=== PATIENT | male | born 1960 | race Caucasian/White ===

== ENCOUNTER 2021-03-03 15:54 | Inpatient (IN) | payer OTHER ==
[~2021-03-03] VITALS: Ht 182.8 cm; Wt 101.1 kg
--- NOTE | 2021-03-03 16:10 | ED Abdominal Pain ---
General Stated Complaint: STOMACH ACHE / [facility] Source of Information: Patient Exam Limitations: No Limitations (SAUL MENDOZA APRN) History of Present Illness Date Seen by Provider: Mar 03, 2021 Time Seen by Provider: 16:07 Initial Comments To ER with epigastric abdominal pain that started yesterday after eating some spicy food. Has tried qtis-kuk-wwmktna heartburn medications which did not help. He denies nausea or vomiting. Nothing makes it better or worse. No fevers or chills. Timing/Duration: 1-2 Days Severity/Quality: Moderate Location: Epigastric Radiation: No Radiation Activities at Onset: None (SAUL MENDOZA APRN) Allergies and Home Medications Allergies Coded Allergies: No Known Drug Allergies (Unverified , 03/03/21) Patient Home Medication List Home Medication List Reviewed: Yes (SAUL MENDOZA APRN) Review of Systems Review of Systems Constitutional: see HPI EENTM: No Symptoms Reported Respiratory: No Symptoms Reported Cardiovascular: No Symptoms Reported Gastrointestinal: See HPI, Abdominal Pain Genitourinary: No Symptoms Reported Musculoskeletal: no symptoms reported Skin: no symptoms reported Psychiatric/Neurological: No Symptoms Reported Endocrine: No Symptoms Reported (SAUL MENDOZA APRN) Physical Exam Vital Signs Vital Signs - First Documented 03/03/21 16:04 Temp 37.1 Pulse 91 Resp 20 B/P (MAP) 185/113 (137) Pulse Ox 98 O2 Delivery Room Air (RASHARD SEWELL MD) Vital Signs Capillary Refill : (SAUL MENDOZA APRN) Height/Weight/BMI Height: '" Weight: lbs. oz. kg; BMI Method: General Appearance: WD/WN, no apparent distress Respiratory: no respiratory distress, no accessory muscle use Gastrointestinal: normal bowel sounds, non tender, soft Extremities: normal range of motion, non-tender Neurologic/Psychiatric: alert, normal mood/affect, oriented x 3 Skin: normal color, warm/dry (SAUL MENDOZA APRN) Progress/Results/Core Measures Results/Orders Lab Results Laboratory Tests Test 03/03/21 16:15 03/03/21 17:55 Range/Units White Blood Count 16.2 H 4.3-11.0 10^3/uL Red Blood Count 5.62 H 4.30-5.52 10^6/uL Hemoglobin 16.9 13.3-17.7 g/dL Hematocrit 50 40-54 % Mean Corpuscular Volume 90 80-99 fL Mean Corpuscular Hemoglobin 30 25-34 pg Mean Corpuscular Hemoglobin Concent 34 32-36 g/dL Red Cell Distribution Width 12.6 10.0-14.5 % Platelet Count 285 130-400 10^3/uL Mean Platelet Volume 9.8 9.0-12.2 fL Immature Granulocyte % (Auto) 0 % Neutrophils (%) (Auto) 81 H 42-75 % Lymphocytes (%) (Auto) 11 L 12-44 % Monocytes (%) (Auto) 8 0-12 % Eosinophils (%) (Auto) 0 0-10 % Basophils (%) (Auto) 0 0-10 % Neutrophils # (Auto) 13.1 H 1.8-7.8 10^3/uL Lymphocytes # (Auto) 1.7 1.0-4.0 10^3/uL Monocytes # (Auto) 1.2 H 0.0-1.0 10^3/uL Eosinophils # (Auto) 0.1 0.0-0.3 10^3/uL Basophils # (Auto) 0.0 0.0-0.1 10^3/uL Immature Granulocyte # (Auto) 0.1 0.0-0.1 10^3/uL Neutrophils % (Manual) 82 % Lymphocytes % (Manual) 9 % Monocytes % (Manual) 9 % Blood Morphology Comment NORMAL Sodium Level 139 135-145 MMOL/L Potassium Level 4.1 3.6-5.0 MMOL/L Chloride Level 102 98-107 MMOL/L Carbon Dioxide Level 26 21-32 MMOL/L Anion Gap 11 5-14 MMOL/L Blood Urea Nitrogen 7 7-18 MG/DL Creatinine 0.96 0.60-1.30 MG/DL Estimat Glomerular Filtration Rate > 60 BUN/Creatinine Ratio 7 Glucose Level 115 H 70-105 MG/DL Calcium Level 10.1 8.5-10.1 MG/DL Corrected Calcium 8.5-10.1 MG/DL Total Bilirubin 1.2 H 0.1-1.0 MG/DL Aspartate Amino Transf (AST/SGOT) 13 5-34 U/L Alanine Aminotransferase (ALT/SGPT) 19 0-55 U/L Alkaline Phosphatase 64 40-136 U/L Total Protein 7.8 6.4-8.2 GM/DL Albumin 4.6 H 3.2-4.5 GM/DL Lipase 19 8-78 U/L Urine Color YELLOW Urine Clarity CLEAR Urine pH 6.0 5-9 Urine Specific [place] <=1.005 1.016-1.022 Urine Protein NEGATIVE NEGATIVE Urine Glucose (UA) NEGATIVE NEGATIVE Urine Ketones NEGATIVE NEGATIVE Urine Nitrite NEGATIVE NEGATIVE Urine Bilirubin NEGATIVE NEGATIVE Urine Urobilinogen 0.2 < = 1.0 MG/DL Urine Leukocyte Esterase NEGATIVE NEGATIVE Urine RBC (Auto) NEGATIVE NEGATIVE Urine RBC NONE /HPF Urine WBC NONE /HPF Urine Squamous Epithelial Cells RARE /HPF Urine Crystals NONE /LPF Urine Bacteria NEGATIVE /HPF Urine Casts NONE /LPF Urine Mucus NEGATIVE /LPF Urine Culture Indicated NO (RASHARD SEWELL MD) Medications Given in ED Current Medications Medications Dose Ordered Sig/Yuriy Route Start Time Stop Time Status Last Admin Dose Admin Al Hydrox/Mg Hydrox/Simethicone 30 ml ONCE ONCE PO 03/03/21 16:15 03/03/21 16:16 DC 03/03/21 16:23 30 ML Fentanyl Citrate 50 mcg ONCE ONCE IVP 03/03/21 17:00 03/03/21 17:01 DC 03/03/21 16:55 50 MCG Iohexol 100 ml ONCE ONCE IV 03/03/21 17:00 03/03/21 17:01 DC 03/03/21 17:46 100 ML Lidocaine HCl 15 ml ONCE ONCE PO 03/03/21 16:15 03/03/21 16:16 DC 03/03/21 16:23 15 ML Sodium Chloride 10 ml NEEDED PRN IV 03/03/21 17:00 03/03/21 20:23 DC 03/03/21 17:46 10 ML Sodium Chloride 100 ml ONCE ONCE IV 03/03/21 17:00 03/03/21 17:01 DC 03/03/21 17:46 80 ML (RASHARD SEWELL MD) Vital Signs/I&O 03/03/21 03/03/21 16:04 16:55 Temp 37.1 37.1 Pulse 91 Resp 20 B/P (MAP) 185/113 (137) Pulse Ox 98 O2 Delivery Room Air (RASHARD SEWELL MD) Departure Impression Primary Impression: Acute cholecystitis Disposition: ADMITTED INPATIENT Condition: Stable Admissions Decision to Admit Reason: Admit from ER (General) Decision to Admit/Date: Mar 03, 2021 Time/Decision to Admit Time: 18:16 (SAUL MENDOZA APRN) Departure-Patient Inst. Referrals: KIMBER QUINTANILLA MD (PCP) Primary Care Physician Attending physician note: I was physically present as attending physician in the emergency department during the care of this patient, but I was not directly involved in his care. (RASHARD SEWELL MD) SAUL MENDOZA APRN Mar 03, 2021 16:10 RASHARD SEWELL MD Mar 03, 2021 20:49
[2021-03-03] MEDS ORDERED: ANTACID SUSP 30 ML UDC (MYLANTA) PO ONE (16:15)
[2021-03-03] MEDS ORDERED: LIDOCAINE 2% VISCOUS 15 ML UDC PO ONE (16:15)
[2021-03-03 16:26] LABS: BASOPHILS % (AUTO) 0 % (0-10); EOSINOPHILS # (AUTO) 0.1 10^3/uL (0.0-0.3); EOSINOPHILS % (AUTO) 0 % (0-10); HEMATOCRIT 50 % (40-54); HEMOGLOBIN 16.9 g/dL (13.3-17.7); LYMPHOCYTES # (AUTO) 1.7 10^3/uL (1.0-4.0); LYMPHOCYTES % (AUTO) 11 % (12-44); MEAN CORPUSCULAR HEMOGLOBIN 30 pg (25-34); MEAN CORPUSCULAR HGB CONC 34 g/dL (32-36); MEAN CORPUSCULAR VOLUME 90 fL (80-99); MEAN PLATELET VOLUME 9.8 fL (9.0-12.2); MONOCYTES # (AUTO) 1.2 10^3/uL (0.0-1.0); MONOCYTES % (AUTO) 8 % (0-12); NEUTROPHILS # (AUTO) 13.1 10^3/uL (1.8-7.8); NEUTROPHILS % (AUTO) 81 % (42-75); PLATELET COUNT 285 10^3/uL (130-400); WHITE BLOOD COUNT 16.2 10^3/uL (4.3-11.0)
[2021-03-03 16:37] LABS: ALBUMIN 4.6 GM/DL (3.2-4.5)
[2021-03-03 16:38] LABS: CHLORIDE 102 MMOL/L (98-107); POTASSIUM 4.1 MMOL/L (3.6-5.0); SODIUM 139 MMOL/L (135-145)
[2021-03-03 16:39] LABS: CALCIUM 10.1 MG/DL (8.5-10.1)
[2021-03-03 16:40] LABS: GLUCOSE 115 MG/DL (70-105); TOTAL PROTEIN 7.8 GM/DL (6.4-8.2)
[2021-03-03 16:41] LABS: CARBON DIOXIDE 26 MMOL/L (21-32)
[2021-03-03 16:42] LABS: BILIRUBIN,TOTAL 1.2 MG/DL (0.1-1.0); NEUTROPHILS % (MANUAL) 82 %
[2021-03-03 16:43] LABS: ALKALINE PHOSPHATASE 64 U/L (40-136); CREATININE SERUM 0.96 MG/DL (0.60-1.30); GFR ESTIMATED > 60; LYMPHOCYTES % (MANUAL) 9 %; MONOCYTES % (MANUAL) 9 %; RBC MORPH NORMAL
[2021-03-03 16:44] LABS: BUN/CREATININE RATIO 7
[2021-03-03 16:46] LABS: ALANINE AMINOTRANSFERASE 19 U/L (0-55)
[2021-03-03 16:47] LABS: LIPASE 19 U/L (8-78)
[2021-03-03] MEDS ORDERED: HOLD METFORMIN - RECEIVED CONTRAST 20 ML VIAL IV SCH (17:00)
[2021-03-03] MEDS ORDERED: fentaNYL INJ 100 MCG/2 ML AMP IVP ONE ×2 (17:00→19:00)
[2021-03-03] MEDS ORDERED: NS 100 ML (IVPB) BAG IV ONE (17:00)
[2021-03-03] MEDS ORDERED: CATHETER FLUSH 10 ML SYR IV PRN ×2 (17:00→20:30)
[2021-03-03] MEDS ORDERED: IOHEXOL 350 MG/ML 100 ML (OMNIPAQUE 350) VIAL IV ONE (17:00)
--- NOTE | 2021-03-03 17:55 | Diagnostic Imaging Report ---
EXAMINATION: CT abdomen and pelvis with intravenous contrast. TECHNIQUE: Multiple contiguous axial images were obtained through the abdomen and pelvis after the uneventful administration of intravenous contrast. All CT scans use one or more of the following dose optimizing techniques: automated exposure control, MA and/or KvP adjustment based on patient size and exam type or iterative reconstruction. HISTORY: Epigastric pain and leukocytosis. COMPARISON: None available. FINDINGS: Limited views of the lower thorax show mild atelectasis in the bases. The liver is normal without focal lesion. There is no biliary ductal dilation. There is a stone in the gallbladder. Gallbladder is distended with mild surrounding stranding. Findings concerning for cholecystitis. Pancreas is normal. Spleen is normal. Adrenal glands are normal. Simple cysts are present in the kidneys. No suspicious renal lesions. There is no hydronephrosis. Urinary bladder is normal. Visualized bowel is normal in caliber without obstruction or inflammation. No free fluid or air. No abdominal or pelvic lymphadenopathy. Aorta is normal in caliber without aneurysm. There are no suspicious osseous lesions. IMPRESSION: 1. Cholelithiasis with distended gallbladder and surrounding stranding concerning for acute cholecystitis. Dictated by: Dictated on workstation # [id number]
[2021-03-03 18:01] LABS: BILIRUBIN,URINE NEGATIVE (NEGATIVE); CLARITY,URINE CLEAR; COLOR,URINE YELLOW; GLUCOSE, URINE (UA) NEGATIVE (NEGATIVE); KETONES,URINE NEGATIVE (NEGATIVE); LEUKOCYTE ESTERASE ,URINE NEGATIVE (NEGATIVE); NITRITE,URINE NEGATIVE (NEGATIVE); PROTEIN,URINE NEGATIVE (NEGATIVE)
[2021-03-03 18:07] LABS: BACTERIA,URINE NEGATIVE /HPF; SQUAMOUS EPITHELIAL CELL,UR RARE /HPF
[2021-03-03 19:55] VITALS: BP 151/90
[2021-03-03] MEDS ORDERED: ONDANSETRON 4 MG/2 ML (SDV) Z0FRAN IV PRN (20:30)
[2021-03-03] MEDS: LACTATED RINGERS 1,000 ML IV SCH (20:51)
[2021-03-03] MEDS: cefTRIAXone 1,000 MG/SWFI 10 ML IV PUSH IV SCH ×2 (20:52)
[2021-03-03] MEDS: metroNIDAZOLE 500MG/100ML IVPB 100 ML IV SCH (22:12)
[2021-03-03] MEDS: fentaNYL INJ 100 MCG/2 ML AMP IV PRN (22:12)
[2021-03-04] VITALS (14 sets, daily range): BP systolic 142–162; BP diastolic 76–97
[2021-03-04] MEDS: fentaNYL INJ 100 MCG/2 ML AMP IV PRN ×5 (00:51→19:55)
[2021-03-04 03:47] LABS: BASOPHILS % (AUTO) 0 % (0-10); EOSINOPHILS % (AUTO) 0 % (0-10); HEMATOCRIT 48 % (40-54); HEMOGLOBIN 15.9 g/dL (13.3-17.7); LYMPHOCYTES # (AUTO) 1.8 10^3/uL (1.0-4.0); LYMPHOCYTES % (AUTO) 12 % (12-44); MEAN CORPUSCULAR HEMOGLOBIN 30 pg (25-34); MEAN CORPUSCULAR HGB CONC 33 g/dL (32-36); MEAN CORPUSCULAR VOLUME 90 fL (80-99); MEAN PLATELET VOLUME 10.3 fL (9.0-12.2); MONOCYTES # (AUTO) 1.4 10^3/uL (0.0-1.0); MONOCYTES % (AUTO) 9 % (0-12); NEUTROPHILS # (AUTO) 11.6 10^3/uL (1.8-7.8); NEUTROPHILS % (AUTO) 78 % (42-75); PLATELET COUNT 232 10^3/uL (130-400); WHITE BLOOD COUNT 14.9 10^3/uL (4.3-11.0)
[2021-03-04 04:02] LABS: ALBUMIN 3.9 GM/DL (3.2-4.5); CHLORIDE 103 MMOL/L (98-107); SODIUM 135 MMOL/L (135-145)
[2021-03-04 04:03] LABS: CALCIUM 9.1 MG/DL (8.5-10.1)
[2021-03-04 04:04] LABS: GLUCOSE 109 MG/DL (70-105); TOTAL PROTEIN 6.7 GM/DL (6.4-8.2)
[2021-03-04 04:05] LABS: CARBON DIOXIDE 20 MMOL/L (21-32)
[2021-03-04 04:06] LABS: BILIRUBIN,TOTAL 1.3 MG/DL (0.1-1.0)
[2021-03-04 04:08] LABS: ALKALINE PHOSPHATASE 52 U/L (40-136); CREATININE SERUM 0.79 MG/DL (0.60-1.30); GFR ESTIMATED > 60
[2021-03-04 04:09] LABS: BUN/CREATININE RATIO 9
[2021-03-04 04:11] LABS: ALANINE AMINOTRANSFERASE 16 U/L (0-55)
[2021-03-04] MEDS: LACTATED RINGERS 1,000 ML IV SCH ×4 (04:56→23:30)
[2021-03-04] MEDS: metroNIDAZOLE 500MG/100ML IVPB 100 ML IV SCH ×3 (06:25→23:25)
[2021-03-04] MEDS ORDERED: ESOM20CA58 PO (12:12)
[2021-03-04] MEDS ORDERED: CALC10009 PO (12:12)
--- NOTE | 2021-03-04 12:34 | History & Physical-Surgical ---
History of Present Illness History of Present Illness Reason for visit/HPI CC: RUQ Abdominal pain 60 year old male with 3 days of ruq abdominal pain. No radiation of pain. Continuous pain. Moderate to sever. Nausea, no emesis. Nothing seemed to bring on. Nothing seems to make it better. Patient had a ct scan demonstrating stones in gallbladder and finding consistent with acute cholecystitis. WBC elevated. Date of Admission Mar 03, 2021 at 18:10 Date Seen by a Provider: Mar 04, 2021 Time Seen by a Provider: 12:31 I consulted on this patient on 03/04/21 12:29 Attending Physician Wyatt Peres DO Admitting Physician Bridgett Hussein MD Consult Allergies and Home Medications Allergies Coded Allergies: No Known Drug Allergies (Unverified , 03/03/21) Home Medications Calcium Carbonate 400 Mg Tab.chew, 400-800 MG PO UD PRN for INDIGESTION, (Reported) Last Action: Reviewed Esomeprazole Magnesium 20 Mg Capsule.dr, 20 MG PO DAILY, (Reported) Last Action: Reviewed Patient Home Medication List Home Medication List Reviewed: Yes Past Wuyktkn-Xccwta-Dhikms Hx Patient Social History Smoking Status: Never a Smoker 2nd Hand Smoke Exposure: No Recent Hopitalizations: No Seasonal Allergies Seasonal Allergies: No Surgeries History of Surgeries: Yes (hernia, left leg) Respiratory History of Respiratory Disorde: No Cardiovascular History of Cardiac Disorders: Yes Cardiac Disorders: Hypertension Neurological History of Neurological Disord: No Genitourinary History of Genitourinary Disor: No Gastrointestinal History of Gastrointestinal Di: No Musculoskeletal History of Musculoskeletal Dis: No Endocrine History of Endocrine Disorders: No HEENT History of HEENT Disorders: No Cancer History of Cancer: No Psychosocial History of Psychiatric Problem: No Blood Transfusions History of Blood Disorders: No Reviewed Nursing Assessment Reviewed/Agree w Nursing PMH: Yes Family Medical History Significant Family History: No Pertinent Family Hx Review of Systems Constitutional: No chills, No fever EENTM: No blurred vision, No double vision Respiratory: No cough, No short of breath Gastrointestinal: abdominal pain (RUQ), nausea; No vomiting Genitourinary: No decreased output, No discharge Musculoskeletal: No back pain, No joint pain Skin: No change in color, No change in hair/nails Psychiatric/Neurological: Denies Anxiety, Denies Depressed, Denies Emotional Problems All Other Systems Reviewed Negative Unless Noted: Yes (Negative excepted noted.) Physical Exam Vital Signs Vital Signs - First Documented 03/03/21 16:04 Temp 37.1 Pulse 91 Resp 20 B/P (MAP) 185/113 (137) Pulse Ox 98 O2 Delivery Room Air Capillary Refill : Less Than 3 Seconds Height, Weight, BMI Height: '" Weight: lbs. oz. kg; 30.25 BMI Method: General Appearance: No Apparent Distress, WD/WN HEENT: PERRL/EOMI, Normal ENT Inspection Neck: Normal Inspection, Non Tender Respiratory: Chest Non Tender, No Accessory Muscle Use, No Respiratory Distress Cardiovascular: Regular Rate, Rhythm, No JVD Gastrointestinal: No Organomegaly, Tenderness (ruq) Rectal: Deferred Back: Normal Inspection, No CVA Tenderness Extremity: Normal Inspection, Normal Range of Motion Neurologic/Psychiatric: Alert, Oriented x3, No Motor/Sensory Deficits, Normal Mood/Affect, radioactivity technician II-XII Norm as Tested Skin: Normal Color, Warm/Dry Lymphatic: No Adenopathy Data Review Labs Laboratory Tests 03/03/21 16:15: White Blood Count 16.2H, Red Blood Count 5.62H, Hemoglobin 16.9, Hematocrit 50, Mean Corpuscular Volume 90, Mean Corpuscular Hemoglobin 30, Mean Corpuscular Hemoglobin Concent 34, Red Cell Distribution Width 12.6, Platelet Count 285, Mean Platelet Volume 9.8, Immature Granulocyte % (Auto) 0, Neutrophils (%) (Auto) 81H, Lymphocytes (%) (Auto) 11L, Monocytes (%) (Auto) 8, Eosinophils (%) (Auto) 0, Basophils (%) (Auto) 0, Neutrophils # (Auto) 13.1H, Lymphocytes # (Auto) 1.7, Monocytes # (Auto) 1.2H, Eosinophils # (Auto) 0.1, Basophils # (Auto ) 0.0, Immature Granulocyte # (Auto) 0.1, Neutrophils % (Manual) 82, Lymphocytes % (Manual) 9, Monocytes % (Manual) 9, Blood Morphology Comment NORMAL, Sodium Level 139, Potassium Level 4.1, Chloride Level 102, Carbon Dioxide Level 26, Anion Gap 11, Blood Urea Nitrogen 7, Creatinine 0.96, Estimat Glomerular Filtration Rate > 60, BUN/Creatinine Ratio 7, Glucose Level 115H, Calcium Level 10.1, Corrected Calcium , Total Bilirubin 1.2H, Aspartate Amino Transf (AST/SGOT) 13, Alanine Aminotransferase (ALT/SGPT) 19, Alkaline Phosphatase 64, Total Protein 7.8, Albumin 4.6H, Lipase 19 03/03/21 17:55: Urine Color YELLOW, Urine Clarity CLEAR, Urine pH 6.0, Urine Specific [place] <=1.005, Urine Protein NEGATIVE, Urine Glucose (UA) NEGATIVE, Urine Ketones NEGATIVE, Urine Nitrite NEGATIVE, Urine Bilirubin NEGATIVE, Urine Urobilinogen 0.2, Urine Leukocyte Esterase NEGATIVE, Urine RBC (Auto) NEGATIVE, Urine RBC NONE, Urine WBC NONE, Urine Squamous Epithelial Cells RARE, Urine Crystals NONE, Urine Bacteria NEGATIVE, Urine Casts NONE, Urine Mucus NEGATIVE, Urine Culture Indicated NO 03/04/21 03:05: White Blood Count 14.9H, Red Blood Count 5.31, Hemoglobin 15.9, Hematocrit 48, Mean Corpuscular Volume 90, Mean Corpuscular Hemoglobin 30, Mean Corpuscular Hemoglobin Concent 33, Red Cell Distribution Width 13.0, Platelet Count 232, Mean Platelet Volume 10.3, Immature Granulocyte % (Auto) 1, Neutrophils (%) (Auto) 78H, Lymphocytes (%) (Auto) 12, Monocytes (%) (Auto) 9, Eosinophils (%) (Auto) 0, Basophils (%) (Auto) 0, Neutrophils # (Auto) 11.6H, Lymphocytes # (Auto) 1.8, Monocytes # (Auto) 1.4H, Eosinophils # (Auto) 0.0, Basophils # (Auto) 0.0, Immature Granulocyte # (Auto) 0.1, Sodium Level 135, Potassium Level 4.0, Chloride Level 103, Carbon Dioxide Level 20L, Anion Gap 12, Blood Urea Nitrogen 7, Creatinine 0.79, Estimat Glomerular Filtration Rate > 60, BUN/Creatinine Ratio 9, Glucose Level 109H, Calcium Level 9.1, Corrected Calcium 9.2, Total Bilirubin 1.3H, Aspartate Amino Transf (AST/SGOT) 12, Alanine Aminotransferase (ALT/SGPT) 16, Alkaline Phosphatase 52, Total Protein 6.7, Albumin 3.9 Assessment/Plan Assessment/Plan Admission Diagonsis RUQ abdomainal pain cholecystitis, cholelithiasis Admission Status: Observation Assessment/Plan RUQ abdomainal pain cholecystitis, cholelithiasis NPO IV Hydration On abx discussed risks and benefits of laparoscopic cholecystectomy with IOC all other indicated procedures and he understands and wishes to proceed. To OR today. WYATT PERES DO Mar 04, 2021 12:34
[2021-03-04] MEDS ORDERED: GLYCOPYRROLATE 0.2 MG/ML (ROBINUL) 2 ML VIAL ONE ×2 (13:09→16:23)
[2021-03-04] MEDS ORDERED: MIDAZOLAM 2 MG/2 ML (VERSED) VIAL ONE (13:09)
[2021-03-04] MEDS ORDERED: proPOfol 200 MG/20 ML (DIPRIVAN) VIAL IV ONE (13:09)
[2021-03-04] MEDS ORDERED: ONDANSETRON 4 MG/2 ML (SDV) Z0FRAN ONE (13:09)
[2021-03-04] MEDS ORDERED: ROCURONIUM 10 MG/ML 5 ML SYRINGE IV ONE ×2 (13:09→15:40)
[2021-03-04] MEDS ORDERED: LIDOCAINE PF 2% 5 ML (XYLOCAINE) VIAL ONE (13:09)
[2021-03-04] MEDS ORDERED: fentaNYL INJ 100 MCG/2 ML AMP ONE (13:09)
[2021-03-04] MEDS ORDERED: NEOSTIGMINE 3 MG/3 ML VIAL ONE ×2 (13:09→16:23)
[2021-03-04] MEDS ORDERED: SEVOFLURANE (ULTANE) 15 ML INHAL SOLN ONE ×3 (13:10→16:36)
[2021-03-04] MEDS ORDERED: LIDOCAINE/EPI 1%-1:100,000 (XYLOCAINE) 20ML INJ ONE (13:45)
[2021-03-04] MEDS: LACTATED RINGERS 1,000 ML IV PRN ×3 (13:58→16:44)
[2021-03-04] MEDS ORDERED: PHENYLEPHRINE 100 MCG/ML 10 ML (ANESTHESIA) SYR ONE (14:14)
[2021-03-04] MEDS ORDERED: ceFAZolin INJECTION 2,000 MG in WATER (STERILE) FOR INJECTION 10 ML IV ONE (14:15)
[2021-03-04] MEDS ORDERED: HYDROmorphone 2 MG/ML VIAL (DILAUDID) ONE (14:33)
--- NOTE | 2021-03-04 16:46 | Progress Note-Post Operative ---
Post-Operative Progess Note Surgeon (s)/Deputy Jailer (s) Surgeon WYATT MONTANA DO Deputy Jailer: Dr. Ireland Pre-Operative Diagnosis acute cholecystitis, cholelithiasis Post-Operative Diagnosis hydrops, acute cholecystitis with necrosis, cholelithiasis Procedure & Operative Findings Date of Procedure 03/04/21 Procedure Performed/Findings Lap fred c drain placement Anesthesia Type general Estimated Blood Loss Estimated blood loss (mL): minimal Specimens/Packing Specimens Removed gallbladder Packing: VERONA drain WYATT MONTANA DO Mar 04, 2021 16:46
[2021-03-04] MEDS ORDERED: HYDROmorphone 2 MG/ML VIAL (DILAUDID) IV ONE (17:00)
[2021-03-04] MEDS ORDERED: ONDANSETRON 4 MG/2 ML (SDV) Z0FRAN IVP PRN (17:00)
[2021-03-04] MEDS: cefTRIAXone 1,000 MG/SWFI 10 ML IV PUSH IV SCH ×2 (19:56)
[2021-03-04] MEDS ORDERED: RT-ALBUTEROL/IPRATROPIUM 3 ML (DUONEB) VIAL INH PRN (20:15)
[2021-03-04] MEDS ORDERED: RT-ALBUTEROL/IPRATROPIUM 3 ML (DUONEB) VIAL INH ONE (21:00)
[2021-03-04] MEDS ORDERED: HYDROcodone/APAP 7.5 MG/325 MG (LORTAB, LORCET PLUS) TABLET PO ONE (21:11)
[2021-03-04] MEDS: HYDROcodone/APAP 7.5 MG/325 MG (LORTAB, LORCET PLUS) TABLET PO PRN (21:12)
[2021-03-04] MEDS ORDERED: fentaNYL INJ 100 MCG/2 ML AMP IV PRN (21:15)
[2021-03-05] VITALS (7 sets, daily range): BP systolic 128–149; BP diastolic 68–90
[2021-03-05] MEDS: HYDROcodone/APAP 7.5 MG/325 MG (LORTAB, LORCET PLUS) TABLET PO PRN ×3 (01:08→11:40)
[2021-03-05] MEDS: LACTATED RINGERS 1,000 ML IV SCH ×3 (02:59→19:19)
[2021-03-05 05:15] LABS: ALBUMIN 3.5 GM/DL (3.2-4.5); CHLORIDE 103 MMOL/L (98-107); POTASSIUM 4.1 MMOL/L (3.6-5.0); SODIUM 135 MMOL/L (135-145)
[2021-03-05 05:16] LABS: CALCIUM 8.7 MG/DL (8.5-10.1)
[2021-03-05] MEDS: metroNIDAZOLE 500MG/100ML IVPB 100 ML IV SCH ×3 (05:16→21:24)
[2021-03-05 05:17] LABS: GLUCOSE 134 MG/DL (70-105)
[2021-03-05 05:18] LABS: TOTAL PROTEIN 6.3 GM/DL (6.4-8.2)
[2021-03-05 05:19] LABS: BILIRUBIN,TOTAL 1.1 MG/DL (0.1-1.0); CARBON DIOXIDE 21 MMOL/L (21-32)
[2021-03-05 05:20] LABS: HEMATOCRIT 46 % (40-54); MEAN CORPUSCULAR HEMOGLOBIN 30 pg (25-34); MEAN CORPUSCULAR HGB CONC 33 g/dL (32-36); MEAN CORPUSCULAR VOLUME 92 fL (80-99); MEAN PLATELET VOLUME 10.5 fL (9.0-12.2); PLATELET COUNT 199 10^3/uL (130-400)
[2021-03-05 05:21] LABS: ALKALINE PHOSPHATASE 44 U/L (40-136); CREATININE SERUM 0.82 MG/DL (0.60-1.30); GFR ESTIMATED > 60
[2021-03-05 05:22] LABS: BUN/CREATININE RATIO 12
[2021-03-05 05:24] LABS: ALANINE AMINOTRANSFERASE 49 U/L (0-55)
[2021-03-05] MEDS: RT-ALBUTEROL/IPRATROPIUM 3 ML (DUONEB) VIAL INH SCH ×2 (07:09→22:14)
--- NOTE | 2021-03-05 09:51 | Anesthesia-General Post-Op ---
General Patient Condition Mental Status/LOC: Same as Preop Cardiovascular: Satisfactory Nausea/Vomiting: Absent Respiratory: Satisfactory Pain: Controlled Complications: Absent Post Op Complications Complications None Follow Up Care/Instructions Patient Instructions None needed. Anesthesia/Patient Condition Patient Condition Patient is doing well, no complaints, stable vital signs, no apparent adverse anesthesia problems. No complications reported per nursing. [place] [facility] [place] Yes ROBB LUJAN CRNA Mar 05, 2021 09:51
--- NOTE | 2021-03-05 11:00 | Progress Note ---
Subjective Date Seen by a Provider: Mar 05, 2021 Time Seen by a Provider: 10:55 Subjective/Events-last exam Patient seen with Dr. Ireland. Patient reports that pain is improving. Tolerating clear liquid diet. Denies any N/V, F/C. Objective Exam Vital Signs Date Time Temp Pulse Resp B/P (MAP) Pulse Ox O2 Delivery O2 Flow Rate FiO2 03/05/21 08:44 Room Air 03/05/21 07:45 36.2 76 20 133/71 (91) 88 Room Air 03/05/21 07:09 92 Room Air 03/05/21 04:09 95 Nasal Cannula 2.00 03/05/21 03:00 37.0 73 20 149/85 (106) 91 Room Air 03/05/21 00:29 95 Nasal Cannula 2.00 03/05/21 00:00 37.2 85 16 131/80 (97) 92 Room Air 03/04/21 23:27 95 Nasal Cannula 2.00 03/04/21 20:48 95 Nasal Cannula 2.00 03/04/21 20:39 92 Nasal Cannula 2.00 03/04/21 19:58 Nasal Cannula 2.00 03/04/21 19:54 37.0 80 95 03/04/21 19:43 37.0 80 18 162/93 (116) 95 Nasal Cannula 3.00 03/04/21 17:50 95 Nasal Cannula 3.00 03/04/21 17:48 37.2 Nasal Cannula 3.00 03/04/21 17:45 Nasal Cannula 3 03/04/21 17:45 37.1 18 158/82 (107) 93 Nasal Cannula 3 03/04/21 17:40 18 154/88 (110) 93 Nasal Cannula 3 03/04/21 17:33 Nasal Cannula 3 03/04/21 17:30 18 157/90 (112) 93 Nasal Cannula 3 03/04/21 17:29 Nasal Cannula 3 03/04/21 17:25 Nasal Cannula 3 03/04/21 17:20 18 156/97 (116) 95 OxyMask 6 03/04/21 17:18 OxyMask 6 03/04/21 17:18 18 159/96 (117) 94 OxyMask 6 03/04/21 17:10 18 156/82 (106) 94 OxyMask 6 03/04/21 17:08 OxyMask 6 03/04/21 17:00 18 142/84 (103) 94 OxyMask 6 03/04/21 16:55 37.3 16 150/86 (107) 97 OxyMask 6 03/04/21 16:55 OxyMask 6 03/04/21 13:00 98 Room Air 03/04/21 12:00 38.6 88 20 145/76 (99) 96 Room Air I & O 03/05/21 07:00 Intake Total 3970 ml Output Total 1275 ml Balance 2695 ml Capillary Refill : Less Than 3 Seconds General Appearance: No Apparent Distress, WD/WN Neck: Normal Inspection, Supple Respiratory: No Accessory Muscle Use, No Respiratory Distress Cardiovascular: Regular Rate, Rhythm, No Edema Gastrointestinal: normal bowel sounds, soft, tenderness, other (right upper quadrant VERONA drain with sang. drainage) Extremity: Normal Inspection, Normal Range of Motion Neurologic/Psychiatric: Alert, Oriented x3 Skin: Normal Color, Warm/Dry, Other (Laparoscopic abdominal incisions C/D/I) Results Lab Laboratory Tests 03/05/21 04:40: White Blood Count 15.0H, Red Blood Count 4.99, Hemoglobin 15.0, Hematocrit 46, Mean Corpuscular Volume 92, Mean Corpuscular Hemoglobin 30, Mean Corpuscular Hemoglobin Concent 33, Red Cell Distribution Width 13.1, Platelet Count 199, Mean Platelet Volume 10.5, Sodium Level 135, Potassium Level 4.1, Chloride Level 103, Carbon Dioxide Level 21, Anion Gap 11, Blood Urea Nitrogen 10, Creatinine 0.82, Estimat Glomerular Filtration Rate > 60, BUN/Creatinine Ratio 12, Glucose Level 134H, Calcium Level 8.7, Corrected Calcium 9.1, Total Bilirubin 1.1H, Aspartate Amino Transf (AST/SGOT) 35H, Alanine Aminotransferase (ALT/SGPT) 49, Alkaline Phosphatase 44, Total Protein 6.3L, Albumin 3.5 Assessment/Plan Assessment/Plan Assess & Plan/Chief Complaint A 60 year old male with acute on chronic calculous cholecystitis VSS WBC 15.0 Total bilirubin 1.1 Tolerating clear liquid diet, will advance to [facility] Encourage ambulation and IS Will repeat labs in FRANCINE KHAN APRN Mar 05, 2021 11:00
--- NOTE | 2021-03-05 15:36 | Physical Therapy Evaluation ---
PT Evaluation-General Medical Diagnosis Admission Date Mar 03, 2021 at 18:10 Medical Diagnosis: RUQ Abdominal pain Onset Date: Mar 03, 2021 Therapy Diagnosis Therapy Diagnosis: Gait deficit, decreased mobility Precautions Precautions/Isolations: Fall Prevention, Standard Precautions Referral Physician: Dr. Peres Reason for Referral: Evaluation/Treatment Social History Home: Single Level Current Living Status: Alone Entry Into Home: Stairs With Railing PT Steps Into Home: 5 PT Steps Inside Home: 0 Prior Prior Level of Function SCALE: Activities may be completed with or without assistive devices. 0-Lyhwalsvzm-xmmbalg completes the activity by him/herself with no assistance from a helper. 5-Set-up or Clean-up Assistance-helper sets up or cleans up; patient completes activity. Caspar assists only prior to or following the activity. 4-Supervision or Touching Assistance-helper provides verbal cues and/or touching/steadying and/or contact guard assistance as patient completes activity. Assistance may be provided throughout the activity or intermittently. 3-Partial/Moderate Assistance-helper does LESS THAN HALF the effort. Caspar l ifts, holds or supports trunk or limbs, but provides less than half the effort. 2-Substantial/Maximal Assistance-helper does MORE THAN HALF the effort. Caspar lifts or holds trunk or limbs and provides more than half the effort. 6-Xeuvjypas-blmvnn does ALL the effort. Patient does none of the effort to complete the activity. Or, the assistance of 2 or more helpers is required for t he patient to complete the activity. If activity was not attempted, code reason: 7-Patient Refused. 9-Not Applicable-not attempted and the patient did not perform the activity before the current illness, exacerbation or injury. 10-Not Attempted due to Environmental Limitations-(lack of equipment, weather restraints, etc.). 88-Not Attempted due to Medical Conditions or Safety Concerns. Bed Mobility: 6 Transfers (B,C,W/C): 6 Gait: 6 Stairs: 6 Wheelchair Mobility: 88 Indoor Mobility (Ambulation): Independent Stairs: Independent Prior Device Use: None PT Evaluation-Current Subjective Patient reports his pain increases at times in the incision and where the drain is located. Patient currently rates pain at 7/10. Pain Numeric Pain Scale: 7 Location: Right Location Body Site: Abdomen Pain Description: Ache, Throbbing, Sharp Pt/Family Goals Patient wants to return home. Objective Patient Orientation: Person, Place, Time, Situation ROM/Strength ROM Lower Extremities WFLs all planes bilaterally. Strength Lower Extremities 4/5 Grossly bilaterally all planes Sensory Vision: Functional Sensation Right Lower Extremit: Intact Sensation Left Lower Extremity: Intact Transfers Roll Left to Right (QC): 3 Sit to Lying (QC): 3 Lying to Sitting/Side of Bed(Q: 3 Sit to Stand (QC): 3 Chair/Int-lo-Fhrlv Xfer(QC): 3 Toilet Transfer (QC): 3 Car Transfer (QC): 88 Gait Does the Patient Walk?: Yes Mode of Locomotion: Walk Anticipated Mode of Locomotion: Walk Walk 10 feet (QC): 4 Walk 50 ft with 2 Turns(QC): 4 Walk 150 ft (QC): 1 Walking 10ft/uneven surface-QC: 1 Distance: 80 feet Gait Assistive Device: None Stairs #of Steps: 0 1 Step (curb) (QC): 1 4 Steps (QC): 1 12 Steps (QC): 1 Balance Sitting Static: Fair Sitting Dynamic: Fair Standing Static: Fair Standing Dynamic: Fair Picking up an Object (QC): 3 Assessment/Needs Patient lying supine in bed upon PT arrival, patient agreeable to treatment. Patient performs all observed bed mobility and transfers with min/mod A. He ambulates 80 feet in the room, sans assistive device, with CGA and verbal cues for safety, progression, balance and conservation of energy. Rehab Potential: Good PT Short Term Goals Short Term Goals Time Frame: Mar 16, 2021 Roll Left & Right: 5 Sit to lyin Lying to sitting on side of be: 5 Sit to stand: 5 Chair/cii-uv-hploy transfer: 5 Toilet transfer: 5 Car transfer: 5 Walk 10 feet: 5 Walk 50 feet with two turns: 5 Walk 150 feet: 4 Walking 10ft on uneven surface: 4 1 step (curb): 4 4 steps: 4 12 steps: 4 Picking up objects: 5 Does pt use a wc or scooter: No Wheel 50ft w/2 turns: 88 Wheel 150 feet: 88 PT Custodial Goals Mannequin Sander And Finisher Goals PT Mannequin Sander And Finisher Goals Time Frame: Mar 26, 2021 Roll Left & Right (QC): 6 Sit to Lying (QC): 6 Lying-Sitting on Side/Bed(QC): 6 Sit to Stand (QC): 6 Chair/Hkb-ti-Rqfza Xfer(QC): 6 Toilet Transfer (QC): 6 Car Transfer (QC): 6 Does the Patient Walk: Yes Walk 10 feet (QC): 6 Walk 50ft with 2 Turns (QC): 6 Walk 150 ft (QC): 5 Walking 10ft on Uneven Surface: 5 1 Step (curb) (QC): 5 4 Steps (QC): 5 12 Steps (QC): 5 Picking up an Object (QC): 5 Does the Pt use WC or Scooter?: No Wheel 50 feet with 2 turns (QC: 88 Type: N/A Wheel 150 feet: 88 Type: N/A PT Plan Problem List Problem List: Activity Tolerance, Functional Strength, Safety, Balance, Gait, Transfer, Bed Mobility Treatment/Plan Treatment Plan: Continue Plan of Care Treatment Plan: Bed Mobility, Education, Functional Activity Paco, Functional Strength, Group Therapy, Gait, Safety, Therapeutic Exercise, Transfers Treatment Duration: Apr 16, 2021 Frequency: At least 5 of 7 days/Wk (IRF) Estimated Hrs Per Day: .25 hour per day Safety Risks/Education Patient Education: Gait Training, Reviewed Precautions Teaching Recipient: Patient Teaching Methods: Demonstration, Discussion Response to Teaching: Verbalize Understanding Time/GCodes Time In: 1110 Time Out: 1135 Total Billed Treatment Time: 25 Total Billed Treatment Visit, isauro Acosta JOHN A PT Mar 05, 2021 15:36
[2021-03-05] MEDS: cefTRIAXone 1,000 MG/SWFI 10 ML IV PUSH IV SCH ×2 (19:20)
[2021-03-06] MEDS: HYDROcodone/APAP 7.5 MG/325 MG (LORTAB, LORCET PLUS) TABLET PO PRN ×2 (00:58→07:44)
[2021-03-06] MEDS: LACTATED RINGERS 1,000 ML IV SCH ×4 (02:03→22:40)
[2021-03-06 03:03] VITALS: BP 126/83
[2021-03-06 04:08] LABS: HEMATOCRIT 41 % (40-54); HEMOGLOBIN 13.3 g/dL (13.3-17.7); MEAN CORPUSCULAR HEMOGLOBIN 30 pg (25-34); MEAN CORPUSCULAR HGB CONC 32 g/dL (32-36); MEAN CORPUSCULAR VOLUME 93 fL (80-99); MEAN PLATELET VOLUME 10.2 fL (9.0-12.2); PLATELET COUNT 213 10^3/uL (130-400); WHITE BLOOD COUNT 12.9 10^3/uL (4.3-11.0)
[2021-03-06 04:21] LABS: ALBUMIN 3.2 GM/DL (3.2-4.5); CHLORIDE 104 MMOL/L (98-107); POTASSIUM 4.2 MMOL/L (3.6-5.0); SODIUM 136 MMOL/L (135-145)
[2021-03-06 04:22] LABS: CALCIUM 8.4 MG/DL (8.5-10.1)
[2021-03-06 04:23] LABS: GLUCOSE 103 MG/DL (70-105)
[2021-03-06 04:24] LABS: TOTAL PROTEIN 5.8 GM/DL (6.4-8.2)
[2021-03-06 04:25] LABS: BILIRUBIN,TOTAL 0.7 MG/DL (0.1-1.0); CARBON DIOXIDE 22 MMOL/L (21-32)
[2021-03-06 04:27] LABS: ALKALINE PHOSPHATASE 41 U/L (40-136); CREATININE SERUM 0.83 MG/DL (0.60-1.30); GFR ESTIMATED > 60
[2021-03-06 04:28] LABS: BUN/CREATININE RATIO 23
[2021-03-06 04:30] LABS: ALANINE AMINOTRANSFERASE 47 U/L (0-55)
[2021-03-06] MEDS: metroNIDAZOLE 500MG/100ML IVPB 100 ML IV SCH ×3 (05:08→22:39)
[2021-03-06 08:00] VITALS: BP 147/104
[2021-03-06] MEDS: RT-ALBUTEROL/IPRATROPIUM 3 ML (DUONEB) VIAL INH SCH ×2 (09:33→20:45)
--- NOTE | 2021-03-06 10:09 | Progress Note ---
Subjective Date Seen by a Provider: Mar 06, 2021 Time Seen by a Provider: 10:00 Subjective/Events-last exam doing well. tolerating diet. moderate serous VERONA drainage. pain controlled. ambulating. Objective Exam Vital Signs Date Time Temp Pulse Resp B/P (MAP) Pulse Ox O2 Delivery O2 Flow Rate FiO2 03/06/21 08:00 37.0 61 18 147/104 (118) 95 Room Air 03/06/21 07:47 Room Air 03/06/21 03:04 Room Air 03/06/21 03:03 36.6 63 18 126/83 (97) 92 Room Air 03/06/21 00:00 Room Air 03/05/21 23:58 37.0 70 16 128/68 (88) 96 Room Air 03/05/21 19:30 Room Air 03/05/21 19:22 36.8 77 18 141/79 (99) 94 Room Air 03/05/21 16:23 37.0 63 18 139/90 (106) 96 Room Air 03/05/21 11:45 37.0 72 22 133/80 (97) 90 Room Air I & O 03/06/21 06:59 Intake Total 2445 ml Output Total 2220 ml Balance 225 ml Capillary Refill : Less Than 3 Seconds General Appearance: No Apparent Distress HEENT: PERRL/EOMI Neck: Full Range of Motion Respiratory: Chest Non Tender, Lungs Clear Cardiovascular: Regular Rate, Rhythm Gastrointestinal: normal bowel sounds, soft, tenderness Extremity: Normal Capillary Refill Neurologic/Psychiatric: Alert, Oriented x3 Skin: Normal Color Lymphatic: No Adenopathy Results Lab Laboratory Tests 03/06/21 03:59: White Blood Count 12.9H, Red Blood Count 4.43, Hemoglobin 13.3, Hematocrit 41, Mean Corpuscular Volume 93, Mean Corpuscular Hemoglobin 30, Mean Corpuscular Hemoglobin Concent 32, Red Cell Distribution Width 13.2, Platelet Count 213, Mean Platelet Volume 10.2, Sodium Level 136, Potassium Level 4.2, Chloride Level 104, Carbon Dioxide Level 22, Anion Gap 10, Blood Urea Nitrogen 19H, Creatinine 0.83, Estimat Glomerular Filtration Rate > 60, BUN/Creatinine Ratio 23, Glucose Level 103, Calcium Level 8.4L, Corrected Calcium 9.0, Total Bilirubin 0.7, Aspartate Amino Transf (AST/SGOT) 26, Alanine Aminotransferase (ALT/SGPT) 47, Alkaline Phosphatase 41, Total Protein 5.8L, Albumin 3.2 Assessment/Plan Assessment/Plan Assess & Plan/Chief Complaint s/p laparoscopic cholecystectomy. monitor drain output. check labs in am. colace for constipation. increase ambulation. ADELIA JONES MD Mar 06, 2021 10:09
[2021-03-06] MEDS: DOCUSATE SODIUM 100 MG (COLACE) CAP PO SCH ×2 (11:14→20:48)
[2021-03-06 11:42] VITALS: BP 115/79
--- NOTE | 2021-03-06 14:15 | OPERATIVE REPORT ---
DATE OF SERVICE: 03/04/2021 PREOPERATIVE DIAGNOSES: Acute cholecystitis, cholelithiasis. POSTOPERATIVE DIAGNOSES: Hydrops gallbladder, acute cholecystitis with necrosis, cholelithiasis. SURGEON: Wyatt Peres DO ICT PROJECT MANAGER: Emelina Ireland MD, assisted in retraction, dissection, and identification of anatomy. ESTIMATED BLOOD LOSS: Minimal. PROCEDURE: Laparoscopic cholecystectomy with drain placement. INDICATIONS: The patient is a 60-year-old male who presented to the Emergency Department with abdominal pain, was found to have acute cholecystitis with cholelithiasis. He has been having pain for at least 3 days and continued to worsen. He understood risks and benefits of procedure and wished to proceed. He had been in the hospital and receiving antibiotics to calm down the gallbladder as well. The patient was recommended to have laparoscopic cholecystectomy with intraoperative cholangiogram and all other indicated procedures. He understood and wished to proceed. Consent was signed in the chart. DESCRIPTION OF PROCEDURE: The patient was taken to the operating suite, was prepped and draped in sterile fashion. Surgical pause was performed. Local anesthetic was infiltrated at the umbilicus. A 12 mm incision was made. Cautery was used to dissect down to the fascia, which was then scored and elevated. A 0 Vicryl was placed in a qqvykk-ch-afwzo fashion for closure at the end of the case. A 12 mm campuzano balloon trocar was inserted and pneumoperitoneum was achieved. Under direct visualization of the laparoscope, a 5 mm trocar was placed in the subxiphoid region and two 5 mm trocars were placed in the right upper quadrant. The patient was repositioned and the gallbladder was then identified significantly inflamed, distended gallbladder with areas that appeared to be necrotic. Gallbladder was then grasped and ruptured, which clear fluid came from the gallbladder consistent with hydrops. The gallbladder was then grasped, multiple adhesions were then bluntly taken down with significant phlegmon around the gallbladder and the gallbladder fossa. Gallbladder was then continued to be taken up. The cystic artery was identified and taken down, dissected around. Clips were placed on the proximal and distal portion and this was then transected. The gallbladder was then continued to be elevated with careful dissection around the cystic duct continued to be done with a [place] and [place]. This was significantly inflamed. Therefore, started to mobilize the gallbladder from the gallbladder fossa with hook cautery and then took attention back towards dissection of the cystic duct. A small hole was created in the gallbladder right at the junction of the cystic duct. Dr. Ireland came into further assist at this time to further help assist helped with identification of anatomy and further dissection. The cystic duct did tear off of the gallbladder, retracting. The cystic duct was able to be grasped and identified; however, the surrounding phlegmon being difficult to grasp, but was able to be grasped and the PDS Endoknot was placed around the cystic duct and secured. The hook cautery used to dissect the gallbladder from the gallbladder fossa achieving hemostasis. It was placed in an Endobag and removed through the 12 mm trocar site. A 19 Keith drain was then placed in the gallbladder fossa and brought out through a 5 mm trocar site. Abdomen was irrigated with copious amounts of irrigation. Hemostasis had been achieved. The drain was secured and the trocars were removed. The 0 Vicryl was placed in the beginning of the case for the 12 mm trocar site in a fdlvuh-ex-cgwne fashion was then closed as well. Skin was then closed using 4-0 Monocryl in subcuticular fashion. The area was washed and dried. Skin Affix was placed over the incisions. The patient tolerated procedure well. He was taken back to the recovery room in stable condition. Job ID: [id number] DocumentID: [id number] Dictated Date: 03/06/2021 09:44:08 Reconciling Clerk Date: 03/06/2021 14:15:03 Dictated By: WYATT PERES DO
[2021-03-06 16:22] VITALS: BP 146/82
[2021-03-06 20:00] VITALS: BP 148/94
[2021-03-06] MEDS: cefTRIAXone 1,000 MG/SWFI 10 ML IV PUSH IV SCH ×2 (20:48)
[2021-03-07] VITALS: BP 131/91
[2021-03-07] MEDS: HYDROcodone/APAP 7.5 MG/325 MG (LORTAB, LORCET PLUS) TABLET PO PRN ×2 (01:56→05:48)
[2021-03-07 04:00] VITALS: BP 161/58
[2021-03-07 04:22] LABS: HEMATOCRIT 41 % (40-54); MEAN CORPUSCULAR HEMOGLOBIN 30 pg (25-34); MEAN CORPUSCULAR HGB CONC 32 g/dL (32-36); MEAN CORPUSCULAR VOLUME 93 fL (80-99); MEAN PLATELET VOLUME 9.8 fL (9.0-12.2); PLATELET COUNT 227 10^3/uL (130-400)
[2021-03-07 04:35] LABS: ALBUMIN 3.2 GM/DL (3.2-4.5)
[2021-03-07 04:36] LABS: CHLORIDE 104 MMOL/L (98-107); POTASSIUM 4.4 MMOL/L (3.6-5.0); SODIUM 139 MMOL/L (135-145)
[2021-03-07 04:37] LABS: CALCIUM 8.5 MG/DL (8.5-10.1)
[2021-03-07 04:38] LABS: GLUCOSE 94 MG/DL (70-105); TOTAL PROTEIN 5.7 GM/DL (6.4-8.2)
[2021-03-07 04:39] LABS: CARBON DIOXIDE 24 MMOL/L (21-32)
[2021-03-07 04:40] LABS: BILIRUBIN,TOTAL 0.6 MG/DL (0.1-1.0)
[2021-03-07 04:41] LABS: ALKALINE PHOSPHATASE 41 U/L (40-136)
[2021-03-07 04:42] LABS: CREATININE SERUM 0.92 MG/DL (0.60-1.30); GFR ESTIMATED > 60
[2021-03-07 04:43] LABS: BUN/CREATININE RATIO 18
[2021-03-07 04:44] LABS: ALANINE AMINOTRANSFERASE 38 U/L (0-55)
[2021-03-07] MEDS: metroNIDAZOLE 500MG/100ML IVPB 100 ML IV SCH ×2 (05:03→15:48)
[2021-03-07] MEDS: LACTATED RINGERS 1,000 ML IV SCH ×2 (05:03→11:45)
[2021-03-07 06:55] VITALS: BP 161/58
[2021-03-07] MEDS: RT-ALBUTEROL/IPRATROPIUM 3 ML (DUONEB) VIAL INH SCH (06:55)
[2021-03-07 07:21] VITALS: BP 125/67
[2021-03-07] MEDS: DOCUSATE SODIUM 100 MG (COLACE) CAP PO SCH (08:15)
--- NOTE | 2021-03-07 09:17 | Progress Note - Surgery ---
Subjective Date Seen by a Provider: Mar 07, 2021 Time Seen by a Provider: 09:11 Subjective/Events-last exam Patient pain controlled. Tolerated breakfast. No nausea or vomiting. Started having bilious drainage this morning at 0600 from drain. I was notified at 0840 of bilious drainage. States abdomen slightly more distended, but not much more pain. Denies fever sweats chills shortness of breath or chest pain. Objective Exam Vital Signs Date Time Temp Pulse Resp B/P (MAP) Pulse Ox O2 Delivery O2 Flow Rate FiO2 03/07/21 08:00 Room Air 03/07/21 07:21 36.8 69 25 125/67 (86) 91 Room Air 03/07/21 06:55 91 Room Air 03/07/21 06:55 36.0 64 91 03/07/21 04:00 Room Air 03/07/21 04:00 36.0 58 18 161/58 (92) 94 Room Air 03/07/21 00:00 36.4 69 18 131/91 (104) 93 Room Air 03/07/21 00:00 Room Air 03/06/21 20:45 92 Room Air 03/06/21 20:00 37.1 80 20 148/94 (112) 94 Room Air 03/06/21 20:00 Room Air 03/06/21 16:22 37.3 87 24 146/82 (103) 93 Room Air 03/06/21 11:42 37.0 69 16 115/79 (91) 92 Room Air I & O 03/07/21 07:00 Intake Total 2770 ml Output Total 4160 ml Balance -1390 ml Capillary Refill : Less Than 3 Seconds General Appearance: No Apparent Distress HEENT: PERRL/EOMI Neck: Full Range of Motion Respiratory: Chest Non Tender, Lungs Clear Cardiovascular: Regular Rate, Rhythm Gastrointestinal: normal bowel sounds, soft, other (incisional tenderness, VERONA bilious drainage) Extremity: Normal Capillary Refill Neurologic/Psychiatric: Alert, Oriented x3 Skin: Normal Color Lymphatic: No Adenopathy Results Lab Laboratory Tests 03/07/21 04:01: White Blood Count 9.0, Red Blood Count 4.39, Hemoglobin 13.0L, Hematocrit 41, Mean Corpuscular Volume 93, Mean Corpuscular Hemoglobin 30, Mean Corpuscular Hemoglobin Concent 32, Red Cell Distribution Width 13.0, Platelet Count 227, Mean Platelet Volume 9.8, Sodium Level 139, Potassium Level 4.4, Chloride Level 104, Carbon Dioxide Level 24, Anion Gap 11, Blood Urea Nitrogen 17, Creatinine 0.92, Estimat Glomerular Filtration Rate > 60, BUN/Creatinine Ratio 18, Glucose Level 94, Calcium Level 8.5, Corrected Calcium 9.1, Total Bilirubin 0.6, Aspartate Amino Transf (AST/SGOT) 17, Alanine Aminotransferase (ALT/SGPT) 38, Alkaline Phosphatase 41, Total Protein 5.7L, Albumin 3.2 Assessment/Plan Assessment/Plan Assessment/Plan s/p laparoscopic cholecystectomy suspect bile leak with VERONA drainage bilious, will transfer for ERCP. notified [facility] which is working on transfer at this time. NPO IV fluids LR to 125 mL/hr No other changes at this time. WYATT MONTANA DO Mar 07, 2021 09:17
--- NOTE | 2021-03-07 10:15 | Physical Therapy Daily Note ---
PT Daily Note-Current Subjective Pt reports he is getting up in the room to walk with only assistance needed for tubes. Pt is set to discharge to for more intensive care. Transfers SCALE: Activities may be completed with or without assistive devices. 2-Xbgejbtmsg-fqbiiav completes the activity by him/herself with no assistance from a helper. 5-Set-up or Clean-up Assistance-helper sets up or cleans up; patient completes activity. Randolph assists only prior to or following the activity. 4-Supervision or Touching Assistance-helper provides verbal cues and/or touching/steadying and/or contact guard assistance as patient completes activity. Assistance may be provided throughout the activity or intermittently. 3-Partial/Moderate Assistance-helper does LESS THAN HALF the effort. Randolph lifts, holds or supports trunk or limbs, but provides less than half the effort. 2-Substantial/Maximal Assistance-helper does MORE THAN HALF the effort. Randolph lifts or holds trunk or limbs and provides more than half the effort. 2-Rqhlnlyjo-zzaopi does ALL the effort. Patient does none of the effort to complete the activity. Or, the assistance of 2 or more helpers is required for the patient to complete the activity. If activity was not attempted, code reason: 7-Patient Refused. 9-Not Applicable-not attempted and the patient did not perform the activity before the current illness, exacerbation or injury. 10-Not Attempted due to Environmental Limitations-(lack of equipment, weather restraints, etc.). 88-Not Attempted due to Medical Conditions or Safety Concerns. Roll Left & Right (QC): 5 Sit to Lying (QC): 5 Lying to Sitting/Side of Bed(Q: 5 Sit to Stand (QC): 5 Chair/Akv-vs-Ywblg Xfer(QC): 5 Toilet Transfer (QC): 5 Gait Training Walk 50 ft with 2 Turns(QC): 4 Gait Assistive Device: FWW Assessment Pt has made progress with strength and mobility. He will benefit from continued strength after being transferred to new facility. PT Short Term Goals Short Term Goals Time Frame: Mar 16, 2021 Roll Left & Right: 5 Sit to lyin Lying to sitting on side of be: 5 Sit to stand: 5 Chair/tsm-yx-rbjwg transfer: 5 Toilet transfer: 5 Car transfer: 5 Walk 10 feet: 5 Walk 50 feet with two turns: 5 Walk 150 feet: 4 Walking 10ft on uneven surface: 4 1 step (curb): 4 4 steps: 4 12 steps: 4 Picking up objects: 5 Does pt use a wc or scooter: No Wheel 50ft w/2 turns: 88 Wheel 150 feet: 88 PT Sieve Grader Tender Goals Penitentiary Goals PT Penitentiary Goals Time Frame: Mar 26, 2021 Roll Left & Right (QC): 6 Sit to Lying (QC): 6 Lying-Sitting on Side/Bed(QC): 6 Sit to Stand (QC): 6 Chair/Krx-wo-Dedkg Xfer(QC): 6 Toilet Transfer (QC): 6 Car Transfer (QC): 6 Does the Patient Walk: Yes Walk 10 feet (QC): 6 Walk 50ft with 2 Turns (QC): 6 Walk 150 ft (QC): 5 Walking 10ft on Uneven Surface: 5 1 Step (curb) (QC): 5 4 Steps (QC): 5 12 Steps (QC): 5 Picking up an Object (QC): 5 Does the Pt use WC or Scooter?: No Wheel 50 feet with 2 turns (QC: 88 Type: N/A Wheel 150 feet: 88 Type: N/A PT Plan Treatment/Plan Treatment Plan: Discontinue PT Treatment Plan: Bed Mobility, Education, Functional Activity Paco, Functional Strength, Group Therapy, Gait, Safety, Therapeutic Exercise, Transfers Treatment Duration: Apr 16, 2021 Frequency: At least 5 of 7 days/Wk (IRF) Estimated Hrs Per Day: .25 hour per day Discharge Recommendations Therapy Discharge Recommendati: Post Acute PT Time/GCodes Time In: 945 Time Out: 950 Total Billed Treatment Time: 5 Total Billed Treatment discharge CORIAN GONSALES PT Mar 07, 2021 10:15
[2021-03-07 11:14] VITALS: BP 141/85
[2021-03-07 15:50] VITALS: BP 159/106
== END 2021-03-07 16:58 | disposition short-term general hospital (02) | DRG 418 ==
LOC: EDUNIT# 15:54 → ER 15:58 → INTOOBSV 18:10 → CSD 18:10 → OBSVTOIN 03-07 16:44
PROVIDERS: ADMIT Surgery; ATTEND Surgery
PROC: 0FT44ZZ Resection of Gallbladder, Percutaneous Endoscopic Approach (ICD-10-PCS; principal; 2021-03-04 13:58)
DX: K80.12 Calculus of gallbladder with acute and chronic cholecystitis without obstruction (principal); K82.1 Hydrops of gallbladder; K91.89 Other postprocedural complications and disorders of digestive system; K82.A1 Gangrene of gallbladder in cholecystitis; I10 Essential (primary) hypertension; K59.00 Constipation, unspecified
CPT/HCPCS: 36415; 74177; 80053; 81000; 83690; 85007; 85025; 85027; 94640; 94664; 94760; G0378